=== PATIENT | male | born 1955 | race Caucasian/White ===

== ENCOUNTER 2022-01-20 16:21 | Observation (INO) ==
[2022-01-20] MEDS ORDERED: SODIUM CHLORIDE 0.9% 1,000 ML IV STA (16:51)
[2022-01-20] MEDS ORDERED: MORPHINE 2 MG/1 ML SYRINGE IV ONE (16:51)
[2022-01-20] MEDS ORDERED: ONDANSETRON 4 MG/2 ML VIAL IV ONE (16:51)
[2022-01-20 17:03] LABS: Basophils % 0.2 % (0.0-0.8); Eosinophils # 0.1 10*3/uL (0.0-0.87); Eosinophils % 2.3 % (0.00-10.9); Hematocrit 42.7 VOL% (42.0-52.0); Hemoglobin 13.5 GM/DL (14.0-18.0); Immature Granulocytes % 0.7 %; Immature Granulocytes Absolute 0.04 #; Lymphocytes # 0.8 10*3/uL (1.4-4.0); Lymphocytes % 14.3 % (21.2-54.2); Mean Corpuscular HGB Conc 31.6 GM/DL (32-36); Mean Corpuscular Volume 94.5 FL (87-102); Mean Platelet Volume 9.8 FL (9.6-12.0); Monocytes # 0.7 10*3/uL (0.11-0.8); Monocytes % 12.7 % (1.7-12.7); Neutrophils % 69.8 % (38.7-73.9); Platelet Count 317 T/CUMM (130-400); Red Blood Count 4.52 MC/CUMM (3.8-5.5); White Blood Count 5.7 T/CUMM (4-12)
[2022-01-20 17:26] LABS: Albumin 4.4 G/DL (3.4-5.0); Bilirubin,Total 0.5 MG/DL (0.20-1.00); Calcium 10.2 MG/DL (8.5-10.1); Osmolality,Calculated 274.8 MOS/KG (273-304); PT Patient Result 10.8 SECS (10.5-12.0); Total Protein 7.5 G/DL (6.4-8.2)
[2022-01-20] MEDS ORDERED: MORPHINE 2 MG/1 ML SYRINGE IV PRN (19:07)
[2022-01-20] MEDS ORDERED: ONDANSETRON 4 MG/2 ML VIAL IV PRN (19:07)
[2022-01-20] MEDS ORDERED: hydrALAZINE 20 MG/1 ML VIAL IV PRN (19:07)
[2022-01-20] MEDS ORDERED: GLUCAGON 1 MG VIAL IM PRN (19:07)
[2022-01-20] MEDS ORDERED: ZALEPLON 5 MG CAPSULE PO PRN (19:07)
[2022-01-20] MEDS ORDERED: DOCUSATE SODIUM 100 MG CAPSULE PO PRN (19:07)
[2022-01-20] MEDS ORDERED: ACETAMINOPHEN 325 MG TABLET PO PRN (19:07)
[2022-01-20] MEDS ORDERED: NICOTINE 21 MG/24 HR PATCH TRANSDERM PRN (19:07)
[2022-01-20] MEDS ORDERED: NITROGLYCERIN SL 0.4 MG TABLET SL PRN (19:18)
[2022-01-20] MEDS ORDERED: DEXTROSE 10% 250 ML BAG IV PRN (19:24)
[2022-01-20] MEDS ORDERED: ENOXAPARIN 40 MG/0.4 ML SYRINGE SUBCUT SCH (21:00)
[2022-01-20] MEDS: ATORVASTATIN 40 MG TABLET PO SCH (23:00)
[2022-01-20] MEDS: buPROPion SR 150 MG TABLET PO SCH (23:01)
[2022-01-20] MEDS: carvediloL 3.125 MG TABLET PO SCH (23:02)
[2022-01-20] MEDS: INSULIN REGULAR 100 UNIT/ML SUBCUT SCH (23:16)
[2022-01-21 04:56] LABS: Basophils % 0.2 % (0.0-0.8); Eosinophils # 0.2 10*3/uL (0.0-0.87); Hematocrit 39.4 VOL% (42.0-52.0); Hemoglobin 12.6 GM/DL (14.0-18.0); Immature Granulocytes % 1.1 %; Immature Granulocytes Absolute 0.05 #; Lymphocytes # 1.1 10*3/uL (1.4-4.0); Lymphocytes % 23.5 % (21.2-54.2); Mean Corpuscular Volume 93.8 FL (87-102); Mean Platelet Volume 9.8 FL (9.6-12.0); Monocytes # 0.8 10*3/uL (0.11-0.8); Monocytes % 16.4 % (1.7-12.7); Neutrophils % 53.8 % (38.7-73.9); Platelet Count 262 T/CUMM (130-400); Red Cell Distribution Width 14.1 % (9.3-17.3); White Blood Count 4.6 T/CUMM (4-12)
[2022-01-21 05:25] LABS: Calcium 9.3 MG/DL (8.5-10.1); Osmolality,Calculated 284.1 MOS/KG (273-304); Potassium 3.8 MMOL/L (3.5-5.1); Risk Ratio 2.56; Thyroid Stimulating Hormone 2.69 uIU/ml (0.358-3.74)
[2022-01-21 05:39] LABS: Eosinophils 5 % (0-10); Lymphocytes 25 % (20-55); Platelet Estimate Adequate; Total Cells Counted 100
[2022-01-21] MEDS: gemfibroziL 600 MG TABLET PO SCH ×2 (07:57→15:55)
[2022-01-21] MEDS: INSULIN REGULAR 100 UNIT/ML SUBCUT SCH ×4 (07:57→20:04)
[2022-01-21] MEDS ORDERED: LOSARTAN 25 MG TABLET PO SCH (09:00)
[2022-01-21] MEDS: carvediloL 3.125 MG TABLET PO SCH ×4 (09:28→16:11)
[2022-01-21] MEDS: buPROPion SR 150 MG TABLET PO SCH ×2 (09:54→20:36)
[2022-01-21] MEDS: ISOSORBIDE MONONITRATE 30 MG TABLET PO SCH (09:55)
[2022-01-21] MEDS: ASPIRIN EC 81 MG TABLET PO SCH (09:55)
[2022-01-21] MEDS: CLOPIDOGREL 75 MG TABLET PO SCH (09:55)
[2022-01-21] MEDS ORDERED: POTASSIUM CHLORIDE RIDER 10 MEQ/100 ML PREMIX IV PRN (10:44)
[2022-01-21] MEDS ORDERED: MAGNESIUM SULF RIDER 2 GM/50 ML PREMIX IV PRN (10:44)
[2022-01-21] MEDS ORDERED: LOSARTAN 25 MG TABLET PO ONE (11:10)
[2022-01-21] MEDS: SODIUM CHLORIDE 0.9% 1,000 ML IV SCH ×2 (13:20→21:55)
[2022-01-21] MEDS ORDERED: diphenhydrAMINE CAP 50 MG CAPSULE PO ONE (16:30)
[2022-01-21] MEDS ORDERED: DIAZEPAM 5 MG TABLET PO ONE (16:30)
[2022-01-21] MEDS ORDERED: HEPARIN/NACL 0.9% 2 UNITS/ML 2,000 UNIT/1,000 ML BAG IV ONE (16:59)
[2022-01-21] MEDS ORDERED: fentaNYL 100 MCG/2 ML VIAL ONE (17:16)
[2022-01-21] MEDS ORDERED: MIDAZOLAM 2 MG/2 ML VIAL ONE ×2 (17:16→17:34)
[2022-01-21] MEDS ORDERED: HEPARIN 5,000 UNIT/1 ML VIAL ONE ×2 (17:36→17:46)
[2022-01-21] MEDS ORDERED: HYDROmorphone 1 MG/1 ML SYRINGE ONE (17:52)
[2022-01-21] MEDS ORDERED: CLOPIDOGREL 300 MG TABLET ONE (18:11)
[2022-01-21] MEDS: ATORVASTATIN 40 MG TABLET PO SCH (20:36)
[2022-01-22 04:24] LABS: Basophils % 0.2 % (0.0-0.8); Eosinophils # 0.2 10*3/uL (0.0-0.87); Eosinophils % 5.4 % (0.00-10.9); Hematocrit 37.5 VOL% (42.0-52.0); Hemoglobin 11.8 GM/DL (14.0-18.0); Immature Granulocytes Absolute 0.04 #; Lymphocytes # 1.3 10*3/uL (1.4-4.0); Lymphocytes % 30.7 % (21.2-54.2); Mean Corpuscular HGB Conc 31.5 GM/DL (32-36); Mean Corpuscular Volume 95.9 FL (87-102); Mean Platelet Volume 9.7 FL (9.6-12.0); Monocytes # 0.8 10*3/uL (0.11-0.8); Monocytes % 18.7 % (1.7-12.7); Platelet Count 243 T/CUMM (130-400); Red Blood Count 3.91 MC/CUMM (3.8-5.5); Red Cell Distribution Width 14.3 % (9.3-17.3); White Blood Count 4.1 T/CUMM (4-12)
[2022-01-22 04:37] LABS: Calcium 8.7 MG/DL (8.5-10.1); Osmolality,Calculated 277.5 MOS/KG (273-304); Potassium 4.2 MMOL/L (3.5-5.1)
[2022-01-22 04:54] LABS: Eosinophils 5 % (0-10); Lymphocytes 22 % (20-55); Platelet Estimate Adequate; Total Cells Counted 100
[2022-01-22] MEDS: SODIUM CHLORIDE 0.9% 1,000 ML IV SCH (06:22)
[2022-01-22 08:33] VITALS: BP 145/64
[2022-01-22] MEDS ORDERED: LOSARTAN 50 MG TABLET PO SCH (09:00)
[2022-01-22] MEDS: carvediloL 3.125 MG TABLET PO SCH (09:15)
[2022-01-22] MEDS: buPROPion SR 150 MG TABLET PO SCH (09:15)
[2022-01-22] MEDS: ASPIRIN EC 81 MG TABLET PO SCH (09:15)
[2022-01-22] MEDS: gemfibroziL 600 MG TABLET PO SCH (09:15)
[2022-01-22] MEDS: ISOSORBIDE MONONITRATE 30 MG TABLET PO SCH (09:15)
[2022-01-22] MEDS: CLOPIDOGREL 75 MG TABLET PO SCH (09:15)
[2022-01-22] MEDS: INSULIN REGULAR 100 UNIT/ML SUBCUT SCH (10:12)
== END 2022-01-22 10:28 | disposition home health service (06) ==
LOC: N.EDINP 16:21 → N.ED 16:21 → SUATTDRO 19:06 → N.TELES 21:06
PROVIDERS: ADMIT Internal Medicine; ATTEND Internal Medicine